=== PATIENT | male | born 1990 | race Caucasian/White ===

== ENCOUNTER 2016-09-22 00:20 | Emergency (ER) | payer OTHER ==
[2016-09-22 00:26] VITALS: BP 119/74; PULSE 78; RESP 18; TEMP 97.7
[2016-09-22] MEDS ORDERED: ACETAMINOPHEN TAB 500 MG TAB PO STA (01:17)
[2016-09-22] MEDS ORDERED: IBUPROFEN 600 MG STARTER PACK 4 TAB BTL PO STA (01:17)
--- NOTE | 2016-09-22 01:55 | XR ---
EXAM: XR Right Knee, 4 views CLINICAL HISTORY: Reason: Pain TECHNIQUE: AP, lateral, oblique, and sunrise views of the right knee. COMPARISON: No relevant prior studies available. FINDINGS: Bones/joints: Unremarkable. No acute fracture. No dislocation. No joint effusion. Soft tissues: Unremarkable. IMPRESSION: No acute osseous abnormality of the right knee.
--- NOTE | 2016-09-22 01:59 | XR ---
EXAM: XR Right Hip With Pelvis When Performed, 2 or 3 Views CLINICAL HISTORY: Reason: Pain TECHNIQUE: Two or three views of the right hip, with pelvis when performed. COMPARISON: No relevant prior studies available. FINDINGS: Bones/joints: Unremarkable. No acute fracture. No dislocation. Soft tissues: Small calcification in the right hemipelvis, likely phlebolith. IMPRESSION: No acute fracture or dislocation.
--- NOTE | 2016-09-22 02:06 | ED ---
Lower Extremity Injury HPI - General Chief Complaint: Extremity Injury, Lower Stated Complaint: [facility] Hip/Knee/Wrist Injury Time Seen by Provider: 09/22/16 00:45 Source: patient, RN notes reviewed Mode of arrival: ambulatory Limitations: no limitations - Related Data Home Medications Medication Instructions Recorded Confirmed No Known Home Medications [No 09/22/16 09/22/16 Known Home Medications] Allergies Allergy/AdvReac Type Severity Reaction Status Date / Time No Known Allergies Allergy Verified 09/22/16 00:26 Review of Systems ROS Statement: Those systems with pertinent positive or pertinent negative responses have been documented in the HPI. ROS Other: All systems not noted in ROS Statement are negative. Past Medical History Past Medical History: No Reported History History of Any Multi-Drug Resistant Organisms: None Reported Past Surgical History: No Surgical Hx Reported Additional Past Surgical History / Comment(s): oral/dental Past Psychological History: No Psychological Hx Reported Smoking Status: Current every day smoker Past Alcohol Use History: Rare Past Drug Use History: None Reported General Exam Limitations: no limitations Course Vital Signs 09/22/16 00:23 Temperature 97.7 F Pulse Rate 78 Respiratory 18 Rate Blood Pressure 119/74 O2 Sat by Pulse 97 Oximetry Disposition Clinical Impression: Abrasion, right knee, initial encounter, Contusion of right knee, initial encounter, Sprain of unspecified site of right knee, initial encounter, Abrasion of right wrist, initial encounter, Contusion of right hip, initial encounter Disposition: HOME SELF-CARE Condition: Good Instructions: Knee Sprain (ED), Abrasion (ED), Contusion in Adults (ED) Additional Instructions: Follow-up with the [facility] as directed by your human resources. Return to the ER at once if the symptoms worsen or problems or difficulties arise. Referrals: Andriy Ackerman DO [STAFF PHYSICIAN] - 1-2 days Time of Disposition: 02:05
== END 2016-09-22 02:23 | disposition home or self-care (01) ==
LOC: EC 00:20
DX: S83.91XA Sprain of unspecified site of right knee, initial encounter (principal); S70.01XA Contusion of right hip, initial encounter; S60.811A Abrasion of right wrist, initial encounter; F17.200 Nicotine dependence, unspecified, uncomplicated; W01.0XXA Fall on same level from slipping, tripping and stumbling without subsequent striking against object, initial encounter; W20.8XXA Other cause of strike by thrown, projected or falling object, initial encounter; Y92.69 Other specified industrial and construction area as the place of occurrence of the external cause; Y99.0 Civilian activity done for income or pay
CPT/HCPCS: 73502; 99283

== ENCOUNTER → 2016-10-06 | Outpatient (CLI) | payer OTHER ==
--- NOTE | 2016-10-06 15:42 | XR ---
Right knee HISTORY: Contusion, S80.01XD 3 views of the right knee Correlation to prior right knee dated 09/22/2016 There is no interval change IMPRESSION: No acute abnormalities evident.
== END | disposition home or self-care (01) ==
LOC: RADXRMAIN 15:19
PROVIDERS: ATTEND Emergency Medicine
DX: S80.01XD Contusion of right knee, subsequent encounter (principal)